=== PATIENT | male | born 1990 | race Caucasian/White ===

== ENCOUNTER → 2020-02-01 08:36 | Outpatient (CLI) | payer OTHER, SELFPAY ==
[2020-02-01 09:38] LABS: Add Manual Diff / Slide Review NO; Basophils Absolute Auto 0 /uL (0-100); Basophils Percent Auto 0.4 % (0-2); Eosinophils Absolute Auto 100 /uL (0-450); Eosinophils Percent Auto 1.2 % (2-4); Hematocrit 47.7 % (41-53); Hemoglobin 16.3 g/dL (13.5-17.5); Lymphocytes Absolute Auto 1200 /uL (1100-4500); Lymphocytes Percent Auto 17.6 % (25-40); Mean Corpuscular HGB Conc 34.1 % (30-36); Mean Corpuscular Hemoglobin 31.4 PG (26-34); Mean Corpuscular Volume 92.2 fL (80-100); Monocytes Absolute Auto 400 /uL (0-900); Monocytes Percent Auto 6.4 % (3-14); Neutrophils Absolute Auto 5000 /uL (1500-7000); Neutrophils Percent Auto 74.4 % (50-75); Platelet Count 324 X10^3/uL (150-400); Red Blood Cell Count 5.17 X10^6/uL (4.5-5.9); Red Cell Distribution Width 12.6 % (11.6-14.8); White Blood Cell Count 6.7 X10^3/uL (4.5-11.0)
[2020-02-01 09:57] LABS: Alanine Aminotransferase 18 IU/L (<50); Albumin 4.4 g/dL (3.5-5.0); Albumin Globulin Ratio 1.6 (1.0-2.8); Alkaline Phosphatase 75 U/L (38-126); Aspartate Aminotransferase 19 IU/L (17-59); BUN Creatinine Ratio 12.5 (6-22); Bilirubin Total 1.1 mg/dL (0.2-1.3); Blood Urea Nitrogen 10 mg/dL (9-20); Calcium 9.7 mg/dL (8.4-10.2); Carbon Dioxide 24 mmol/L (22-32); Chloride 103 mmol/L (98-107); Cholesterol 147 mg/dL (140-199); Estimated Glomerular Filt Rate > 60.0 mL/min (>60); Globulin 2.7 g/dL (1.7-4.1); Glucose 98 mg/dL (70-100); HDL Cholesterol 65 mg/dL (40-60); HEMOLYSIS < 15 (0-50); LDL Cholesterol Calculated 71 mg/dL (<100); Potassium 4.5 mmol/L (3.4-5.1); Sodium 136 mmol/L (137-145); Total Protein 7.1 g/dL (6.3-8.2); Triglycerides 54 mg/dL (35-150)
[2020-02-01 10:07] LABS: Vitamin D 25 Hydroxy (D3) 34.1 ng/mL (30.0-100.0)
[2020-02-01 10:23] LABS: TSH w/ Reflex to FT4 0.31 uIU/mL (0.47-4.68)
[2020-02-01 11:32] LABS: Free T4, Direct Thyroxine 1.21 ng/dL (0.78-2.19)
[2020-02-05 15:42] LABS: Albumin 4.4 g/dL (3.6-5.1); Sex Hormone Binding Globulin 38 nmol/L (10-50); Testosterone, Bioavailable 294.6 ng/dL (110.0-575.0); Testosterone, Total 1032 ng/dL (250-1100); Testosterone,Free 146.3 pg/mL (46.0-224.0)
== END ==
PROVIDERS: PCP Physician Assistant; Referring Provider Physician Assistant; Visit Provider Physician Assistant
DX: E78.2 Mixed hyperlipidemia (principal); E34.9 Endocrine disorder, unspecified; E29.1 Testicular hypofunction; N52.9 Male erectile dysfunction, unspecified; R35.0 Frequency of micturition; R39.15 Urgency of urination
CPT/HCPCS: 36415; 80053; 80061; 82040; 82306; 84153; 84154; 84270; 84403; 84439; 84443; 85025

== ENCOUNTER → 2020-02-07 13:02 | Outpatient (CLI) | payer OTHER, SELFPAY ==
[2020-02-07 16:20] LABS: Free T3, Triiodothyronine Free 4.12 pg/mL (2.77-5.27); Free T4, Direct Thyroxine 1.18 ng/dL (0.78-2.19)
[2020-02-07 16:34] LABS: TSH w/ Reflex to FT4 0.55 uIU/mL (0.47-4.68)
[2020-02-08 06:29] LABS: Triiodothyronine T3 Total 140 ng/dL (71-180)
== END ==
LOC: LAB 13:04
PROVIDERS: PCP Physician Assistant; Referring Provider Physician Assistant; Visit Provider Physician Assistant
DX: E05.90 Thyrotoxicosis, unspecified without thyrotoxic crisis or storm (principal)
CPT/HCPCS: 36415; 83516; 84439; 84443; 84480; 84481